=== PATIENT | male | born 1945 | race Caucasian/White ===

== ENCOUNTER 2020-12-21 06:30 | Day surgery (SDC) | payer MEDICARE, SELFPAY ==
--- NOTE | 2020-12-21 06:28 | ANES.PREOP_ITS ---
General Info Date of Service Date Performed: 12/21/20 Height: 5 ft 10 in Weight: 85 kg Body Mass Index (BMI): 26.9 Surgical Procedure: Operation Date: 12/21/20 07:40 Proposed Procedures Side Surgeon p Cataract Extraction with IOL Implant Right Andrea Houser MD Meds Allergies and Home Medications Allergies Allergy/AdvReac Type Severity Reaction Status Date / Time No Known Allergies Allergy Unverified 11/25/13 16:11 Home Medication Medication Instructions Recorded atenolol 50 mg PO DAILY tab-cap 11/25/13 cholecalciferol (vitamin D3) 5,000 unit PO DAILY 11/25/13 finasteride 5 mg PO DAILY tab-cap 11/25/13 loratadine 10 mg PO DAILY tab-cap 11/25/13 lovastatin 40 mg PO DAILY tab-cap 11/25/13 multivitamin [Daily Vitamin] 1 ea PO DAILY 11/25/13 omeprazole 40 mg PO DAILY tab-cap 11/25/13 tamsulosin 0.8 mg PO DAILY tab-cap 11/25/13 Current Visit Medications: Current Medications Generic Name Dose Route Start Last Admin Trade Name Freq PRN Reason Stop Dose Admin Acetaminophen 1,000 mg 12/21/20 06:00 Acetaminophen 500 Mg Tab PO Q4H PRN PRN Miscellaneous Medication 0 ml 12/21/20 06:00 Prednisolone 1%, Moxifloxacin 0.5%, Nepafenac 0.1% 5ml Btl OD DIRECTED [facility] Miscellaneous Medication 0 ml 12/21/20 06:00 Tropicam./Phenyleph. (1/2.5%) 5 Ml Btl OD DIRECTED [facility] Tetracaine HCl 0 ml 12/21/20 06:00 Tetracaine 0.5% 4 Ml Btl OD DIRECTED [facility] PFSH Active Problems Active Problems: Problem Status Onset Code Sensorineural hearing loss of both ears H90.3 Medical History Medical History (Updated 12/21/20 @ 07:01 by Andrea Houser MD) Allergic rhinitis BPH (benign prostatic hyperplasia) GERD (gastroesophageal reflux disease) Hyperlipidemia Hypertension OA (osteoarthritis) Obesity Rosacea Vitamin D deficiency Surgical History Surgical History (Updated 02/21/18 @ 14:37 by [employer] [place]) Arthroplasty of knee Colonoscopy - IV Sedation Fracture, Open Treatment tib-fib with pinning Skin Cancer Removal Vital Signs and Lab Results Vital Signs Most Recent Vital Signs in EMR: Temp Pulse Resp BP Pulse Ox 36.1 C L 67 20 141/73 H 97 12/21/20 06:44 12/21/20 06:44 12/21/20 06:44 12/21/20 06:44 12/21/20 06:44 Lab Results Blood Type / Crossmatch: No Data to Display Complete Blood Count: No Data to Display Complete Metabolic Panel: No Data to Display Liver Function Panel: No Data to Display Coagulation Panel: No Data to Display Cardiac Panel: No Data to Display Arterial Blood Gas: No Data to Display Venous Blood Gas: No Data to Display Pancreas Panel: No Data to Display Thyroid Panel: No Data to Display Infectious Disease: No Data to Display Blood Cultures: No Data to Display Toxicology Panel: No Data to Display Anesthesia Assessment and Plan Anesthesia History Personal History: No History of Anesthesia Complications Family History: No Family History of Anesthesia Complications Exercise Tolerance Exercise Tolerance: Metabolic Equivalents>4 Cardiac & Pulmonary Exam Cardiac Exam: Normal S1/S2 Heart Sounds Pulmonary Exam: Clear Bilateral Breath Sounds Airway Exam Known Difficult Airway: No Mallampati Class: 3 Mouth Opening: Normal (> 3cm) Thyromental Distance: Greater than 3 cm Neck Range of Motion: Full ROM Neck Circumference: Normal Teeth Condition: Removable Dentures/Plates Lower and Edentulous ASA Classification ASA Score: ASA 2 Emergency Case?: No NPO Status NPO Status: NPO Clears >2 hours, Solids >8 hours Anesthesia Plan Resuscitation Status: Full Code Anesthesia Technique: MAC Anesthesia Airway Planned: Natural Airway Monitors Used: Standard Monitors Preoperative Comments:: 75 yo male for cataract removal. PMHx of HTN, GERD.
[2020-12-21 06:44] VITALS: BP 141/73; PULSE 67; RESP 20; TEMP 36.1; O2SAT 97
[2020-12-21] MEDS: Tropicam./Phenyleph. (1/2.5%) 5 ML BTL OD ×3 (06:53→07:08)
[2020-12-21 07:15] VITALS: BMI 26.9
[2020-12-21] MEDS: Povidone-Iodine Ophth 30 ML BTL (07:24)
[2020-12-21] MEDS: Lidocaine 2% Jelly 6 ML SYR (07:24)
[2020-12-21] MEDS: Balanced Salt Soln.-PLUS 500 ML BAG (07:30)
[2020-12-21] MEDS: Lidocaine 1% Pres-Free 5 ML VIAL (07:31)
[2020-12-21] MEDS: Tetracaine 0.5% 4 ML BTL OD (07:31)
[2020-12-21] MEDS: Duovisc Viscoelastic System EACH 1 EACH (07:31)
--- NOTE | 2020-12-21 07:52 | ROE_ITS ---
Date of service: 12/21/20 Time of Service: 07:53 Operative Note Operative Note DATE OF PROCEDURE: 12/21/20 PRE-OP DIAGNOSIS: Nuclear cataract, right eye POST-OP DIAGNOSIS: same PROCEDURE: Cataract extraction using phacoemulsification with intraocular lens implant, right eye SURGEON: Andrea Houser ANESTHESIA TYPE: Local By Surgeon and MAC Refer to Anesthesia Record ESTIMATED BLOOD LOSS: 0 PATHOLOGY: none sent COMPLICATIONS: None Patient was transported to: same day Patient's condition: stable Implants: Parag & Parag/RACHELLE Tecnis [id number] Indications: Progressive visual loss due to cataract, right eye Procedure Description: CATARACT SURGERY OPERATIVE REPORT PREOPERATIVE DIAGNOSIS: 1. Nuclear cataract, right eye POSTOPERATIVE DIAGNOSIS: Same OPERATION: 1. Cataract extraction using phacoemulsification with posterior chamber intraocular lens implant, right eye. IOL: IOL Metal Tank Erector/Model: Parag & Parag / RACHELLE Tecnis [id number] IOL Power: + 20.5 diopters IOL Serial Number: [id number] Optic Diameter: 6.0mm Haptic/Overall Diameter: 13.0mm PHACO INFO: [employer]urion Vision System with OZil and Active Fluidics Cumulative Dispersed Energy (CDE): 5.06 seconds SURGEON: Andrea Houser MD, YE ANESTHESIA: Monitored [facility] (MAC), with local sub-tenon's anesthetic infiltration COMPLICATIONS: None SPECIMENS: None INDICATIONS FOR PROCEDURE: The patient is a 75-year-old gentleman with history of diminished visual acuity in his right eyes secondary to the development of nuclear cataract. He is significantly symptomatic that he desires cataract surgery and attempt to improve and maximize his vision. The option of cataract surgery was offered to the patient and he wished to proceed. PROCEDURE: The correct surgical eye was identified and marked as the right eye and the pupil was dilated in the preoperative area using mydriatics and cycloplegics. The dilated pupil size was 6.0 mm. He elected to proceed without oral sedation. The patient was brought to the operating room where cardiopulmo nary monitoring was instituted and surgical time-out was performed, confirming the correct operative eye and IOL power. Topical anesthesia was administered and ophthalmic povidone-iodine 5% was inst illed into the conjunctival fornices. Lidocaine gel was applied to the cornea and the dale-ocular area was prepped with Betadine 10% solution and draped in the usual sterile fashion for intraocular surgery, including an aperture drape. A Tegaderm transparent film dressing was cut in half and used to cover the lashes and lid margins. Care was taken to sequester the lashes and lid margins under the Tegaderm dressing. A lid speculum was placed between the lids of the operative eye and the Ev-Ulices operating microscope was maneuvered into position. Patric scissors were then used to make a conjunctival buttonhole approximately 6mm posterior to the limbus in the inferonasal quadrant. Blunt dissection was carried out to expose bare sclera, and a blunt-tipped sub-tenon?s anesthesia cannula was introduced and passed posteriorly along the globe where non- preserved plain lidocaine was injected into posterior sub-Tenon?s space. A sideport knife was used to make a paracentesis port inferotemporally. Intraocular phenylephrine/lidocaine was injected into the anterior chamber. The anterior chamber was filled with viscoelastic. A 2.4mm keratome knife was used to create a half-thickness groove at the limbus and then to construct a three- plane near-clear corneal tunnel extending 2.0mm into clear cornea superiortemporally. A flap was raised on the anterior capsule and capsulorhexis forceps were used to complete a continuous curvilinear capsulorhexis of 5.0 mm. Balanced salt solution was then used to perform cortical cleaving hydrodissection and nuclear hydrodelineation until the lens could be freely rotated within the capsular bag. The lens nucleus was then disassembled and removed within the capsular bag and iris plane using phacoemulsification. Residual cortical material was removed using the I/A handpiece. The posterior capsule was carefully polished to remove as much residual lens epithelial cells as safely possible. The capsular bag was then inflated and the anterior chamber deepened with viscoelastic. The lens implant described above was inserted into the capsular bag using the RACHELLE [place] Injector. A Kuglen hook was used to dial the IOL into position. Residual viscoelastic was then removed first from posterior to the IOL, then from the anterior chamber using the I/A handpiece. The lens implant was noted to center nicely within the capsular bag. The incisions were stromally hydrated, and the anterior chamber was reformed using BSS. Then 0.5cc of moxifloxacin 1.0mg/ml were injected into the capsular bag and anterior chamber. The incisions were checked with a Weck spear and found to be secure. Several drops of ophthalmic povidone-iodine 5% were then applied to the eye followed by two drops of Imprimis combination prednisolone/moxifloxacin/nepafenac solution. The drapes were removed and a clear plastic protective eye shield was placed over the eye. The patient was then returned to Same Day Surgery in stable condition.
--- NOTE | 2020-12-21 07:52 | W.PM.DSUDISC ---
Discharge Plan Disposition Patient Disposition: HOME Condition: Good Discharge Details Reason For Visit: Cataract Attending Provider: Andrea Houser Primary Care Provider: Kellie Hernandez Home Meds and New Rx's Prescriptions: No Action multivitamin [Daily Vitamin] 1 EACH tablet 1 ea PO DAILY RF: 0 loratadine 10 MG tablet,disintegrating 10 mg PO DAILY RF: 0 lovastatin 40 MG tablet 40 mg PO DAILY RF: 0 omeprazole 40 MG capsule,delayed release(DR/EC) 40 mg PO DAILY RF: 0 tamsulosin 0.4 MG capsule 0.8 mg PO DAILY RF: 0 atenolol 50 MG tablet 50 mg PO DAILY RF: 0 finasteride 5 MG tablet 5 mg PO DAILY RF: 0 cholecalciferol (vitamin D3) 5,000 UNIT/1 ML drops 5,000 unit PO DAILY RF: 0 Discharge Instructions Stand Alone Forms: Post-op Topical Cataract, Lilo Huynh (DSU) Discharge Orders Discharge Orders: Discharge Order (Routine); Ordered 12/21/20 Ordered By: Andrea Houser DS: Diagnosis Discharge Diagnosis (1) Nuclear sclerotic cataract of right eye: Status: Resolved (2) Sensorineural hearing loss of both ears: Status: Acute
[2020-12-21 07:58] VITALS: BP 144/73; PULSE 60; RESP 16; TEMP 36.6; O2SAT 96
--- NOTE | 2020-12-21 08:01 | W.ANESPOSTOP ---
Postoperative Evaluation Date, Time and Location Date Performed: 12/21/20 Time Performed: 08:01 Patient Location: Day Surgery Unit Vital Signs Most Recent Imported Vital Signs: Most Recent Vital Signs Temp Pulse Resp BP Pulse Ox 36.6 C 60 16 144/73 H 96 12/21/20 07:58 12/21/20 07:58 12/21/20 07:58 12/21/20 07:58 12/21/20 07:58 Pain Score Most Recent Pain Score: Most Recent Pain Score Pain Level 0 12/21/20 07:58 Assessment Mental Status: Awake (Alert & Oriented to Patient Baseline) Airway and Respiratory Function: Patent airway with normal (patient baseline) respiratory exam Cardiovascular Function: Hemodynamically Stable Hydration Status: Adequately Hydrated Nausea & Vomiting: No Nausea or Vomiting Pain: Pt. Denies Any Pain Peripheral Nerve Block: Patient did not receive a nerve block
== END 2020-12-21 08:13 | disposition home or self-care (01) ==
PROVIDERS: PCP Family Medicine; Visit Provider Ophthalmology
PROC: (CPT 66984; principal; 2020-12-21 07:30)
DX: H25.11 Age-related nuclear cataract, right eye (principal); I10 Essential (primary) hypertension; E78.5 Hyperlipidemia, unspecified
CPT/HCPCS: 66984; V2632

== ENCOUNTER 2021-01-01 02:01 | Outpatient (CLI) | payer MEDICARE, SELFPAY ==
[2021-01-01 12:09] LABS: Source Nasal/Nares
[2021-01-01 16:58] LABS: COVID-19 PCR Negative (Negative)
== END 2021-01-01 02:02 | disposition home or self-care (01) ==
LOC: LBO 02:03
PROVIDERS: PCP Family Medicine; Visit Provider Ophthalmology
DX: Z20.822 Contact with and (suspected) exposure to COVID-19 (principal); Z01.818 Encounter for other preprocedural examination
CPT/HCPCS: 87635

== ENCOUNTER 2021-01-04 10:12 | Day surgery (SDC) | payer MEDICARE, SELFPAY ==
[2021-01-04 10:44] VITALS: BP 142/78; PULSE 57; RESP 18; TEMP 36.4; O2SAT 100
[2021-01-04] MEDS: Tropicam./Phenyleph. (1/2.5%) 5 ML BTL OS ×3 (10:52→11:03)
--- NOTE | 2021-01-04 11:08 | W.ANESPRE ---
General Info Date of Service Date Performed: 01/04/21 Height: 5 ft 11 in Weight: 121.3 kg Body Mass Index (BMI): 37.3 Surgical Procedure: Operation Date: 01/04/21 13:40 Proposed Procedures Side Surgeon p Cataract Extraction with IOL Implant Left Andrea Houser MD Meds Allergies and Home Medications Allergies Allergy/AdvReac Type Severity Reaction Status Date / Time No Known Allergies Allergy Unverified 01/04/21 10:37 Home Medication Medication Instructions Recorded atenolol 50 mg PO DAILY tab-cap 11/25/13 cholecalciferol (vitamin D3) 5,000 unit PO DAILY 11/25/13 finasteride 5 mg PO DAILY tab-cap 11/25/13 loratadine 10 mg PO DAILY tab-cap 11/25/13 lovastatin 40 mg PO DAILY tab-cap 11/25/13 multivitamin [Daily Vitamin] 1 ea PO DAILY 11/25/13 omeprazole 40 mg PO DAILY tab-cap 11/25/13 tamsulosin 0.8 mg PO DAILY tab-cap 11/25/13 Current Visit Medications: Current Medications Generic Name Dose Route Start Last Admin Trade Name Freq PRN Reason Stop Dose Admin Acetaminophen 1,000 mg 01/04/21 06:00 Acetaminophen 500 Mg Tab PO Q4H PRN PRN Miscellaneous Medication 0 ml 01/04/21 06:00 Prednisolone 1%, Moxifloxacin 0.5%, Nepafenac 0.1% 5ml Btl OS DIRECTED [facility] Miscellaneous Medication 0 ml 01/04/21 06:00 01/04/21 11:03 Tropicam./Phenyleph. (1/2.5%) 5 Ml Btl OS 1 drp DIRECTED [facility] Administration Tetracaine HCl 0 ml 01/04/21 06:00 Tetracaine 0.5% 4 Ml Btl OS DIRECTED [facility] PFSH Active Problems Active Problems: Problem Status Onset Code Nuclear sclerotic cataract of left eye H25.12 Nuclear sclerotic cataract of right eye H25.11 Sensorineural hearing loss of both ears H90.3 Medical History Medical History Allergic rhinitis BPH (benign prostatic hyperplasia) GERD (gastroesophageal reflux disease) Hyperlipidemia Hypertension OA (osteoarthritis) Obesity Rosacea Vitamin D deficiency Surgical History Surgical History Arthroplasty of knee Colonoscopy - IV Sedation Fracture, Open Treatment tib-fib with pinning Skin Cancer Removal Tobacco Smoking/Tobacco Use Status: Former Tobacco Use Alcohol Alcohol Intake: current Alcohol intake frequency: a few times a month Alcohol type: hard liquor Substance Use Substance use: Never Substance use type: does not use Details: alcohol: t-14 Vital Signs and Lab Results Vital Signs Most Recent Vital Signs in EMR: Most Recent Vital Signs Temp Pulse Resp BP Pulse Ox 36.4 C L 57 L 18 142/78 H 100 01/04/21 10:44 01/04/21 10:44 01/04/21 10:44 01/04/21 10:44 01/04/21 10:44 Lab Results Blood Type / Crossmatch: No Data to Display Complete Blood Count: No Data to Display Complete Metabolic Panel: No Data to Display Liver Function Panel: No Data to Display Coagulation Panel: No Data to Display Cardiac Panel: No Data to Display Arterial Blood Gas: No Data to Display Venous Blood Gas: No Data to Display Pancreas Panel: No Data to Display Thyroid Panel: No Data to Display Infectious Disease: Coronavirus (COVID-19)(PCR) Negative (Negative) 01/01/21 08:24 01/01/21 Coronavirus 2019 Source Nasal/Nares 01/01/21 08:24 01/01/21 Blood Cultures: No Data to Display Toxicology Panel: No Data to Display Anesthesia Assessment and Plan Anesthesia History Personal History: No History of Anesthesia Complications Family History: No Family History of Anesthesia Complications Exercise Tolerance Exercise Tolerance: Metabolic Equivalents>4 Cardiac & Pulmonary Exam Cardiac Exam: Normal S1/S2 Heart Sounds Pulmonary Exam: Clear Bilateral Breath Sounds Airway Exam Known Difficult Airway: No Mallampati Class: 3 Mouth Opening: Normal (> 3cm) Thyromental Distance: Greater than 3 cm Neck Range of Motion: Full ROM Neck Circumference: Normal Teeth Condition: Removable Dentures/Plates Lower and Edentulous ASA Classification ASA Score: ASA 2 Emergency Case?: No NPO Status NPO Status: NPO Clears >2 hours, Solids >8 hours Anesthesia Plan Resuscitation Status: Full Code Anesthesia Technique: MAC Anesthesia Airway Planned: Natural Airway Monitors Used: Standard Monitors Preoperative Comments:: 75 yo male for cataract removal. PMHx of HTN, GERD.
[2021-01-04 11:12] VITALS: BMI 37.3
[2021-01-04] MEDS: Tetracaine 0.5% 4 ML BTL OS (12:07)
[2021-01-04] MEDS: Balanced Salt Soln.-PLUS 500 ML BAG (12:08)
[2021-01-04] MEDS: Duovisc Viscoelastic System EACH 1 EACH (12:09)
[2021-01-04] MEDS: Lidocaine 1% Pres-Free 5 ML VIAL (12:09)
[2021-01-04] MEDS: Lidocaine 2% Jelly 6 ML SYR (12:10)
[2021-01-04] MEDS: Povidone-Iodine Ophth 30 ML BTL (12:11)
--- NOTE | 2021-01-04 12:22 | W.PM.DSUDISC ---
Discharge Plan Disposition Patient Disposition: HOME Condition: Good Discharge Details Attending Provider: Andrea Houser Primary Care Provider: Kellie Hernandez Home Meds and New Rx's Prescriptions: No Action multivitamin [Daily Vitamin] 1 EACH tablet 1 ea PO DAILY RF: 0 loratadine 10 MG tablet,disintegrating 10 mg PO DAILY RF: 0 lovastatin 40 MG tablet 40 mg PO DAILY RF: 0 omeprazole 40 MG capsule,delayed release(DR/EC) 40 mg PO DAILY RF: 0 tamsulosin 0.4 MG capsule 0.8 mg PO DAILY RF: 0 atenolol 50 MG tablet 50 mg PO DAILY RF: 0 finasteride 5 MG tablet 5 mg PO DAILY RF: 0 cholecalciferol (vitamin D3) 5,000 UNIT/1 ML drops 5,000 unit PO DAILY RF: 0 Discharge Instructions Stand Alone Forms: Post-op Topical Cataract, Lilo Huynh (DSU) Discharge Orders Discharge Orders: Discharge Order (Routine); Ordered 01/04/21 Ordered By: Andrea Houser DS: Diagnosis Discharge Diagnosis (1) Nuclear sclerotic cataract of left eye: Status: Resolved
[2021-01-04 12:23] VITALS: BP 161/80; PULSE 62; RESP 18; TEMP 36; O2SAT 98
--- NOTE | 2021-01-04 12:23 | ROE_ITS ---
Date of service: 01/04/21 Time of Service: 12:23 Operative Note Operative Note DATE OF PROCEDURE: 01/04/21 PRE-OP DIAGNOSIS: Nuclear cataract, left eye POST-OP DIAGNOSIS: same PROCEDURE: Cataract extraction using phacoemulsification with intraocular lens implant, left eye SURGEON: Andrea Houser ANESTHESIA TYPE: Local By Surgeon and MAC Refer to Anesthesia Record PATHOLOGY: none sent COMPLICATIONS: None Patient was transported to: same day Patient's condition: stable Implants: Parag and Parag / [employer] Tecnis [id number] Indications: Progressive decreased vision due to cataract, left eye, with poor red reflex Procedure Description: CATARACT SURGERY OPERATIVE REPORT PREOPERATIVE DIAGNOSIS: 1. Nuclear cataract, left eye POSTOPERATIVE DIAGNOSIS: Same OPERATION: 1. Cataract extraction using phacoemulsification with posterior chamber intraocular lens implant, left eye. IOL: IOL [employer] Hiker/Model: Parag & Parag / RACHELLE Tecnis [id number] IOL Power: + 20.5 diopters IOL Serial Number: [id number] Optic Diameter: 6.0 mm Haptic/Overall Diameter: 13.0 mm PHACO INFO: [employer] Vision System with OZil and Active Fluidics Cumulative Dispersed Energy (CDE): 7.37 seconds SURGEON: Andrea Houser MD, YE ANESTHESIA: Monitored A [facility] (MAC), with local sub-tenon's anesthetic infiltration COMPLICATIONS: None SPECIMENS: None INDICATIONS FOR PROCEDURE: The patient is a 75-year-old gentleman with history of diminished visual acuity in his left eye secondary to the development of significant nuclear cataract. He has already undergone cataract surgery in the right eye and is doing well p ostoperatively. He now presents for cataract surgery in the left. PROCEDURE: The correct surgical eye was identified and marked as the left eye and the pupil was dilated in the preoperative area using mydriatics and cycloplegics. The dilated pupil size was 7.0 mm. He elected to proceed without oral sedation. The patient was brought to the operating room where cardiopulmo nary monitoring was instituted and surgical time-out was performed, confirming the correct operative eye and IOL power. Topical anesthesia was administered and ophthalmic povidone-iodine 5% was inst illed into the conjunctival fornices. Lidocaine gel was applied to the cornea and the dale-ocular area was prepped with Betadine 10% solution and draped in the usual sterile fashion for intraocular surgery, including an aperture drape. A Tegaderm transparent film dressing was cut in half and used to cover the lashes and lid margins. Care was taken to sequester the lashes and lid margins under the Tegaderm dressing. A lid speculum was placed between the lids of the operative eye and the Ev-Ulices operating microscope was maneuvered into position. Patric scissors were then used to make a conjunctival buttonhole approximately 6mm posterior to the limbus in the inferonasal quadrant. Blunt dissection was carried out to expose bare sclera, and a blunt-tipped sub-tenon?s anesthesia cannula was introduced and passed posteriorly along the globe where non- preserved plain lidocaine was injected into posterior sub-Tenon?s space. A sideport knife was used to make a paracentesis port super iorly/superiortemporally. Intraocular phenylephrine/lidocaine was injected int the anterior chamber.. The anterior chamber was filled with viscoelastic. A 2.4mm keratome knife was used to create a half-thickness groove at the limbus and then to construct a three-plane near-clear corneal tunnel extending 2.0mm into clear cornea at the 3:00 position. A flap was raised on the anterior capsule and capsulorhexis forceps were used to complete a continuous curvilinear capsulorhexis of 5.5 mm. Balanced salt solution was then used to perform cortical cleaving hydrodissection and nuclear hydrodelineation until the lens could be freely rotated within the capsular bag. The lens nucleus was then disassembled and removed within the capsular bag and iris plane using phacoemulsification. Residual cortical material was removed using the 45-degree angled silicone I/A tip with 0.3mm port. The posterior capsule was carefully polished to remove as much residual lens epithelial cells as safely possible. The capsular bag was then inflated and the anterior chamber deepened with viscoelastic. The lens implant described above was inserted into the capsular bag using the RACHELLE [place] Injector. A Kuglen hook was used to dial the IOL into position. Residual viscoelastic was then removed first from posterior to the IOL, then from the anterior chamber using the I/A handpiece. The lens implant was noted to center nicely within the capsular bag. The incisions were stromally hydrated, and the anterior chamber was reformed using BSS. Then 0.5cc of moxifloxacin 1.0mg/ml were injected into the capsular bag and anterior chamber. The incisions were checked with a Weck spear and found to be secure. Several drops of ophthalmic povidone-iodine 5% were then applied to the eye followed by two drops of Imprimis combination prednisolone/moxifloxacin/nepafenac solution. The drapes were removed and a clear plastic protective eye shield was placed over the eye. The patient was then returned to Same Day Surgery in stable condition.
--- NOTE | 2021-01-04 13:12 | W.ANESPOSTOP ---
Postoperative Evaluation Date, Time and Location Date Performed: 01/04/21 Time Performed: 13:12 Patient Location: PACU Vital Signs Most Recent Imported Vital Signs: Most Recent Vital Signs Temp Pulse Resp BP Pulse Ox 36 C L 62 18 161/80 H 98 01/04/21 12:23 01/04/21 12:23 01/04/21 12:23 01/04/21 12:23 01/04/21 12:23 Pain Score Most Recent Pain Score: Most Recent Pain Score Pain Level 0 01/04/21 12:23 Assessment Mental Status: Awake (Alert & Oriented to Patient Baseline) Airway and Respiratory Function: Patent airway with normal (patient baseline) respiratory exam Cardiovascular Function: Hemodynamically Stable Hydration Status: Adequately Hydrated Nausea & Vomiting: No Nausea or Vomiting Pain: Pt. Denies Any Pain Peripheral Nerve Block: Patient did not receive a nerve block
== END 2021-01-04 12:38 | disposition home or self-care (01) ==
PROVIDERS: PCP Family Medicine; Visit Provider Ophthalmology
PROC: (CPT 66984; principal; 2021-01-04 13:30)
DX: H25.12 Age-related nuclear cataract, left eye (principal); I10 Essential (primary) hypertension; E78.5 Hyperlipidemia, unspecified; E55.9 Vitamin D deficiency, unspecified
CPT/HCPCS: 66984; V2632